=== PATIENT | female | born 2000 | race Caucasian/White ===

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

== ENCOUNTER → 2020-08-05 | Outpatient (CLI) | payer BC | LOC: LAB 10:47 | DX: R05 Cough (principal); Z20.822 Contact with and (suspected) exposure to COVID-19 ==